=== PATIENT | male | born 1965 | race Caucasian/White ===

== ENCOUNTER 2017-03-11 09:58 | Emergency (ER) | payer MEDICAID ==
[~2017-03-11] VITALS: Ht 160 cm; Wt 85.9 kg
[~2017-03-11 09:58] MED LIST: ASPI-556 PO; CAPT25TA3 PO
[2017-03-11] MEDS ORDERED: IRON15TA3 PO (10:01)
[2017-03-11] MEDS ORDERED: OMEG100019 PO (10:01)
[2017-03-11] MEDS ORDERED: [UNRECOGNIZED DRUG - CODE] PO (10:47)
[2017-03-11] MEDS ORDERED: ASPI-1093 PO (10:47)
[2017-03-11] MEDS ORDERED: OMEG100033 PO (10:47)
[2017-03-11 11:01] LABS: BASOPHILS % (AUTO) 0.5 % (0.0-2.0); EOSINOPHILS % (AUTO) 2.2 % (1.0-6.0); HEMATOCRIT 46.5 % (41-53); LYMPHOCYTES # (AUTO) 2.6 K/uL (1.0-4.8); LYMPHOCYTES % (AUTO) 33.5 % (22.0-44.0); MEAN CORPUSCULAR HEMOGLOBIN 30.9 pg (26.0-34.0); MEAN CORPUSCULAR HGB CONC 34.4 G/dL (31.0-37.0); MEAN CORPUSCULAR VOLUME 90 fL (80-100); MONOCYTES # (AUTO) 0.4 K/uL (0.1-1.0); MONOCYTES % (AUTO) 5.3 % (2.0-9.0); NEUTROPHILS # (AUTO) 4.5 K/uL (1.8-7.7); NEUTROPHILS % (AUTO) 58.5 % (40.0-70.0); PLATELET COUNT (AUTO) 271 K/uL (150-450); RED BLOOD CELL COUNT(AUTO) 5.18 MIL/uL (4.50-5.90); RED CELL DISTRIBUTION WIDTH 12.4 % (11.5-14.5); WHITE BLOOD COUNT (AUTO) 7.7 K/uL (4.5-11.0)
[2017-03-11 11:12] LABS: ANION GAP 8 mmol/L (8-16); CALCIUM, TOTAL 8.8 mg/dL (8.8-10.5); CARBON DIOXIDE 25 mmol/L (22-29); CHLORIDE 105 mmol/L (98-107); CREATININE 0.89 mg/dL (0.60-1.30); GLOMERULAR FILTR. RATE CALC > 60 mL/min (>60); POTASSIUM 4.3 mmol/L (3.5-5.1); SODIUM SERUM 138 mmol/L (136-145); UREA NITROGEN, BLOOD 11 mg/dL (7-18)
[2017-03-11 11:24] LABS: B-TYPE NATRIURETIC PEPTIDE 52 pg/mL (0-100)
[2017-03-11] MEDS ORDERED: CAPTOPRIL 25 MG TABLET PO ONE (11:30)
[2017-03-11 11:49] LABS: ALANINE AMINOTRANSFERASE 53 U/L (12-78); ALBUMIN 3.9 g/dL (3.4-5.0); ASPARTATE AMINOTRANSFERASE 23 U/L (15-37); BILIRUBIN,TOTAL 0.3 mg/dL (0.1-1.0); CREATINE KINASE MB 1.1 ng/mL (0-5); CREATINE KINASE, TOTAL 112 U/L (39-308); TOTAL PROTEIN, SERUM 7.9 g/dL (6.4-8.2)
[2017-03-11 12:36] VITALS: BP 143/83
== END 2017-03-11 12:50 | disposition home or self-care (01) ==
LOC: EMS 10:02
DX: R07.89 Other chest pain (principal); I10 Essential (primary) hypertension; R20.0 Anesthesia of skin; I25.10 Atherosclerotic heart disease of native coronary artery without angina pectoris; Z95.1 Presence of aortocoronary bypass graft; Z79.82 Long term (current) use of aspirin
CPT/HCPCS: 93005; 99285

== ENCOUNTER 2021-09-25 17:41 | Emergency (ER) | payer MEDICAID ==
[~2021-09-25] VITALS: Ht 160 cm; Wt 85.9 kg
[~2021-09-25 17:41] MED LIST changes: +ASPI-1444 PO; -ASPI-556 PO; -CAPT25TA3 PO; +OMEG100033 PO; +[UNRECOGNIZED DRUG - CODE] PO
[2021-09-25 22:07] LABS: BASOPHILS % (AUTO) 0.6 % (0.0-2.0); EOSINOPHILS % (AUTO) 0.1 % (1.0-6.0); HEMATOCRIT 43.8 % (41-53); LYMPHOCYTES % (AUTO) 24.9 % (22.0-44.0); MEAN CORPUSCULAR HEMOGLOBIN 30.7 pg (26.0-34.0); MEAN CORPUSCULAR HGB CONC 34.2 G/dL (31.0-37.0); MEAN CORPUSCULAR VOLUME 90 fL (80-100); MONOCYTES # (AUTO) 0.6 K/uL (0.1-1.0); MONOCYTES % (AUTO) 7.3 % (2.0-9.0); NEUTROPHILS # (AUTO) 5.5 K/uL (1.8-7.7); NEUTROPHILS % (AUTO) 67.1 % (40.0-70.0); PLATELET COUNT (AUTO) 200 K/uL (150-450); RED CELL DISTRIBUTION WIDTH 12.5 % (11.5-14.5)
[2021-09-25 22:33] LABS: ANION GAP 7 mmol/L (8-16); CALCIUM, TOTAL 8.8 mg/dL (8.8-10.5); CARBON DIOXIDE 27 mmol/L (22-29); CHLORIDE 100 mmol/L (98-107); CREATININE 1.11 mg/dL (0.60-1.30); GLOMERULAR FILTR. RATE CALC > 60 mL/min (>60); GLUCOSE,RANDOM 128 mg/dL (70-110); POTASSIUM 3.8 mmol/L (3.5-5.1); SODIUM SERUM 134 mmol/L (136-145); UREA NITROGEN, BLOOD 19 mg/dL (7-18)
[2021-09-25 22:39] LABS: ALANINE AMINOTRANSFERASE 38 U/L (12-78); ALBUMIN 3.2 g/dL (3.4-5.0); ALKALINE PHOSPHATASE 64 U/L (46-116); ASPARTATE AMINOTRANSFERASE 28 U/L (15-37); BILIRUBIN,TOTAL 0.6 mg/dL (0.1-1.0); LIPASE 235 U/L (73-393); TOTAL PROTEIN, SERUM 7.9 g/dL (6.4-8.2)
[2021-09-26] MEDS ORDERED: PB/HYOSCY/ATR/SCOP/LIDO/MAALOX 55 ML BOTTLE PO ONE (01:00)
[2021-09-26] MEDS ORDERED: FAMOTIDINE 20 MG TABLET PO ONE (01:00)
[2021-09-26 01:19] VITALS: BP 132/74
== END 2021-09-26 03:02 | disposition home or self-care (01) ==
LOC: EMS 17:43
DX: R10.13 Epigastric pain (principal); I10 Essential (primary) hypertension; E78.00 Pure hypercholesterolemia, unspecified; F32.9 Major depressive disorder, single episode, unspecified; Z79.899 Other long term (current) drug therapy
CPT/HCPCS: 36415; 80053; 83690; 84484; 85025; 93005; 99284; G0480

== ENCOUNTER 2021-10-31 12:00 | Inpatient (IN) | payer MEDICAID ==
[2021-10-31] VITALS (12 sets, daily range): BP systolic 103–203; BP diastolic 73–104
[~2021-10-31] VITALS: Ht 175.3 cm; Wt 86.4 kg
[2021-10-31 12:23] LABS: BASOPHILS % (AUTO) 0.9 % (0.0-2.0); EOSINOPHILS % (AUTO) 1.9 % (1.0-6.0); HEMOGLOBIN 14.5 g/dL (13.5-17.5); LYMPHOCYTES # (AUTO) 2.7 K/uL (1.0-4.8); LYMPHOCYTES % (AUTO) 31.2 % (22.0-44.0); MEAN CORPUSCULAR HEMOGLOBIN 30.1 pg (26.0-34.0); MEAN CORPUSCULAR HGB CONC 33.7 G/dL (31.0-37.0); MEAN CORPUSCULAR VOLUME 89 fL (80-100); MONOCYTES # (AUTO) 0.7 K/uL (0.1-1.0); MONOCYTES % (AUTO) 7.6 % (2.0-9.0); NEUTROPHILS # (AUTO) 5.1 K/uL (1.8-7.7); NEUTROPHILS % (AUTO) 58.4 % (40.0-70.0); PLATELET COUNT (AUTO) 229 K/uL (150-450); RED BLOOD CELL COUNT(AUTO) 4.82 MIL/uL (4.50-5.90)
[2021-10-31 12:41] LABS: ANION GAP 6 mmol/L (8-16); CARBON DIOXIDE 24 mmol/L (22-29); CHLORIDE 106 mmol/L (98-107); CREATININE 0.85 mg/dL (0.60-1.30); GLOMERULAR FILTR. RATE CALC > 60 mL/min (>60); GLUCOSE,RANDOM 115 mg/dL (70-110); POTASSIUM 3.9 mmol/L (3.5-5.1); SODIUM SERUM 136 mmol/L (136-145); UREA NITROGEN, BLOOD 10 mg/dL (7-18)
[2021-10-31 12:45] LABS: ALANINE AMINOTRANSFERASE 59 U/L (12-78); ALBUMIN 3.8 g/dL (3.4-5.0); ALKALINE PHOSPHATASE 85 U/L (46-116); ASPARTATE AMINOTRANSFERASE 35 U/L (15-37); BILIRUBIN,TOTAL 0.7 mg/dL (0.1-1.0); TOTAL PROTEIN, SERUM 8.1 g/dL (6.4-8.2)
[2021-10-31] MEDS ORDERED: HEPARIN SODIUM 1000 UNITS/NS 1,000 ML ONE (13:10)
[2021-10-31] MEDS ORDERED: LIDOCAINE/PF 1% 30 ML VIAL ONE (13:10)
[2021-10-31] MEDS ORDERED: IOHEXOL 300 MG/ML 150 ML VIAL ONE (13:10)
[2021-10-31] MEDS ORDERED: SODIUM BICARBONATE 50 MEQ/50 ML VIAL ONE (13:10)
[2021-10-31] MEDS ORDERED: ASPIRIN 325 MG TABLET ONE (14:42)
[2021-10-31] MEDS ORDERED: TICAGRELOR 90 MG TABLET ONE (14:42)
[2021-10-31] MEDS ORDERED: ONDANSETRON HCL 4 MG/2 ML VIAL IVP PRN (14:45)
[2021-10-31] MEDS ORDERED: MORPHINE SULFATE 2 MG/ML SYRINGE IVP PRN (14:45)
[2021-10-31] MEDS ORDERED: ATORVASTATIN CALCIUM 40 MG TABLET PO SCH (14:45)
[2021-10-31] MEDS ORDERED: MIDAZOLAM HCL 2 MG/2 ML VIAL ONE (14:45)
[2021-10-31] MEDS ORDERED: FentaNYL CITRATE PF 100 MCG/2 ML VIAL ONE (14:45)
[2021-10-31] MEDS ORDERED: ASPIRIN 81 MG CHEWABLE TABLET PO ONE (15:00)
[2021-10-31] MEDS ORDERED: FentaNYL CITRATE PF 100 MCG/2 ML VIAL IVP ONE (15:00)
[2021-10-31] MEDS ORDERED: IOHEXOL 300 MG/ML 150 ML VIAL IARTER ONE (15:00)
[2021-10-31] MEDS ORDERED: TICAGRELOR 90 MG TABLET PO ONE (15:00)
[2021-10-31] MEDS ORDERED: MIDAZOLAM HCL 2 MG/2 ML VIAL IVP ONE (15:00)
[2021-10-31] MEDS ORDERED: HEPARIN SODIUM 1000 UNITS/NS 1,000 ML IARTER ONE (15:00)
[2021-10-31] MEDS ORDERED: LIDOCAINE 1% 30 ML/SOD BICARB 8.4% 4 ML SQ ONE (15:00)
[2021-10-31] MEDS ORDERED: IOHEXOL 300 MG/ML 100 ML VIAL ONE (15:03)
[2021-10-31] MEDS ORDERED: IOHEXOL 300 MG/ML 50 ML VIAL ONE (15:03)
[2021-10-31] MEDS ORDERED: NITROGLYCERIN 50 MG/D5% WATER 250 ML ONE (15:26)
[2021-10-31] MEDS ORDERED: VERAPAMIL HCL 2.5 MG/ML 2 ML VIAL ONE (15:27)
[2021-10-31] MEDS ORDERED: NITROGLYCERIN/D5W 50 MG/250 ML IV BOTTLE ICOR ONE (15:30)
[2021-10-31] MEDS ORDERED: VERAPAMIL HCL 2.5 MG/ML 2 ML VIAL ICOR ONE (15:30)
[2021-10-31] MEDS ORDERED: IOHEXOL 300 MG/ML 100 ML VIAL IARTER ONE (15:45)
[2021-10-31] MEDS ORDERED: HEPARIN SODIUM,PORCINE 5,000 UNITS/ML VIAL IVP ONE (15:45)
[2021-10-31] MEDS ORDERED: IOHEXOL 300 MG/ML 50 ML VIAL IARTER ONE (15:45)
[2021-10-31] MEDS ORDERED: ACETAMINOPHEN 325 MG TABLET PO PRN (16:00)
[2021-10-31] MEDS ORDERED: HydrALAZINE HCL 20 MG/ML VIAL IVP PRN (16:00)
[2021-10-31] MEDS ORDERED: SODIUM CHLORIDE 0.9% 500 ML IV ONE (16:45)
[2021-10-31] MEDS: LISINOPRIL 10 MG TABLET PO SCH (17:04)
[2021-10-31] MEDS: CARVEDILOL 12.5 MG TABLET PO SCH ×2 (17:04→20:17)
[2021-10-31] MEDS: AmLODIPine BESYLATE 5 MG TABLET PO SCH (17:04)
[2021-10-31] MEDS: ATORVASTATIN CALCIUM 40 MG TABLET PO SCH (20:16)
[2021-10-31] MEDS: TICAGRELOR 90 MG TABLET PO SCH (20:16)
[2021-10-31] MEDS: FAMOTIDINE 20 MG TABLET PO SCH (20:16)
[2021-10-31] MEDS: DOCUSATE SODIUM 100 MG CAPSULE PO SCH (20:17)
[2021-10-31] MEDS: ACETAMINOPHEN 325 MG TABLET PO PRN (21:07)
[2021-11-01] VITALS (8 sets, daily range): BP systolic 108–157; BP diastolic 63–84
[2021-11-01] MEDS: FAMOTIDINE 20 MG TABLET PO SCH ×2 (07:46→20:34)
[2021-11-01] MEDS: AmLODIPine BESYLATE 5 MG TABLET PO SCH (07:47)
[2021-11-01] MEDS: LISINOPRIL 10 MG TABLET PO SCH (07:49)
[2021-11-01] MEDS: CARVEDILOL 12.5 MG TABLET PO SCH ×2 (07:49→20:34)
[2021-11-01] MEDS: TICAGRELOR 90 MG TABLET PO SCH ×2 (07:49→20:34)
[2021-11-01] MEDS: DOCUSATE SODIUM 100 MG CAPSULE PO SCH ×2 (07:50→20:35)
[2021-11-01] MEDS: METOPROLOL SUCCINATE 50 MG ER TABLET PO SCH (08:05)
[2021-11-01] MEDS: ASPIRIN 81 MG CHEWABLE TABLET PO SCH (08:05)
[2021-11-01 08:08] LABS: BAND NEUTROPHILS % (MANUAL) 0 % (0-5)
[2021-11-01 08:10] LABS: HEMATOCRIT 44.9 % (41-53); HEMOGLOBIN 14.8 g/dL (13.5-17.5); MEAN CORPUSCULAR HEMOGLOBIN 30.1 pg (26.0-34.0); MEAN CORPUSCULAR VOLUME 91 fL (80-100); PLATELET COUNT (AUTO) 236 K/uL (150-450); RED BLOOD CELL COUNT(AUTO) 4.94 MIL/uL (4.50-5.90); RED CELL DISTRIBUTION WIDTH 13.3 % (11.5-14.5)
[2021-11-01 08:28] LABS: ALANINE AMINOTRANSFERASE 57 U/L (12-78); ALBUMIN 3.6 g/dL (3.4-5.0); ALKALINE PHOSPHATASE 80 U/L (46-116); ANION GAP 9 mmol/L (8-16); ASPARTATE AMINOTRANSFERASE 31 U/L (15-37); BILIRUBIN,TOTAL 0.9 mg/dL (0.1-1.0); CALCIUM, TOTAL 9.1 mg/dL (8.8-10.5); CARBON DIOXIDE 26 mmol/L (22-29); CHLORIDE 104 mmol/L (98-107); CHOL/HDL RATIO 4.8 (4.2-7.3); CHOLESTEROL 189 mg/dL (131-200); CREATININE 0.89 mg/dL (0.60-1.30); GLOMERULAR FILTR. RATE CALC > 60 mL/min (>60); GLUCOSE,RANDOM 136 mg/dL (70-110); HDL CHOLESTEROL 39 mg/dL (40-60); LDL CHOL (CALC.) 123 mg/dL (0-130); POTASSIUM 4.6 mmol/L (3.5-5.1); SODIUM SERUM 139 mmol/L (136-145); TOTAL PROTEIN, SERUM 7.9 g/dL (6.4-8.2); TRIGLYCERIDES 134 mg/dL (15-150); UREA NITROGEN, BLOOD 10 mg/dL (7-18)
[2021-11-01 09:24] LABS: EOSINOPHILS % (MANUAL) 2 % (1-6); LYMPHOCYTES % (MANUAL) 27 % (22-44); MONOCYTES % (MANUAL) 5 % (2-9); SEGMENTED NEUTROPHILS % 66 % (40-70)
[2021-11-01] MEDS: ATORVASTATIN CALCIUM 40 MG TABLET PO SCH (20:34)
[2021-11-01] MEDS: ACETAMINOPHEN 325 MG TABLET PO PRN (20:36)
[2021-11-02] VITALS: BP 128/68
[2021-11-02 04:00] VITALS: BP 119/87
[2021-11-02 06:17] LABS: BASOPHILS % (AUTO) 0.4 % (0.0-2.0); EOSINOPHILS % (AUTO) 3.1 % (1.0-6.0); HEMATOCRIT 43.2 % (41-53); HEMOGLOBIN 14.3 g/dL (13.5-17.5); LYMPHOCYTES # (AUTO) 2.8 K/uL (1.0-4.8); LYMPHOCYTES % (AUTO) 28.4 % (22.0-44.0); MEAN CORPUSCULAR HEMOGLOBIN 30.2 pg (26.0-34.0); MEAN CORPUSCULAR HGB CONC 33.2 G/dL (31.0-37.0); MEAN CORPUSCULAR VOLUME 91 fL (80-100); MONOCYTES # (AUTO) 0.8 K/uL (0.1-1.0); MONOCYTES % (AUTO) 8.3 % (2.0-9.0); NEUTROPHILS # (AUTO) 5.9 K/uL (1.8-7.7); NEUTROPHILS % (AUTO) 59.8 % (40.0-70.0); PLATELET COUNT (AUTO) 215 K/uL (150-450); RED BLOOD CELL COUNT(AUTO) 4.75 MIL/uL (4.50-5.90); RED CELL DISTRIBUTION WIDTH 13.5 % (11.5-14.5)
[2021-11-02 06:46] LABS: ALANINE AMINOTRANSFERASE 47 U/L (12-78); ALBUMIN 3.4 g/dL (3.4-5.0); ALKALINE PHOSPHATASE 77 U/L (46-116); ANION GAP 8 mmol/L (8-16); ASPARTATE AMINOTRANSFERASE 22 U/L (15-37); BILIRUBIN,TOTAL 0.5 mg/dL (0.1-1.0); CALCIUM, TOTAL 8.9 mg/dL (8.8-10.5); CARBON DIOXIDE 25 mmol/L (22-29); CHLORIDE 106 mmol/L (98-107); CREATININE 0.95 mg/dL (0.60-1.30); GLOMERULAR FILTR. RATE CALC > 60 mL/min (>60); GLUCOSE,RANDOM 135 mg/dL (70-110); POTASSIUM 3.9 mmol/L (3.5-5.1); SODIUM SERUM 139 mmol/L (136-145); TOTAL PROTEIN, SERUM 7.5 g/dL (6.4-8.2); UREA NITROGEN, BLOOD 18 mg/dL (7-18)
[2021-11-02] MEDS: DOCUSATE SODIUM 100 MG CAPSULE PO SCH (08:19)
[2021-11-02] MEDS: ASPIRIN 81 MG CHEWABLE TABLET PO SCH (08:19)
[2021-11-02] MEDS: FAMOTIDINE 20 MG TABLET PO SCH (08:20)
[2021-11-02] MEDS: CARVEDILOL 12.5 MG TABLET PO SCH (08:20)
[2021-11-02] MEDS: AmLODIPine BESYLATE 5 MG TABLET PO SCH (08:20)
[2021-11-02] MEDS: LISINOPRIL 10 MG TABLET PO SCH (08:21)
[2021-11-02] MEDS: METOPROLOL SUCCINATE 50 MG ER TABLET PO SCH (08:21)
[2021-11-02] MEDS: TICAGRELOR 90 MG TABLET PO SCH (08:59)
[2021-11-02 09:49] VITALS: BP 139/87
[2021-11-02] MEDS ORDERED: TICA90TA PO (12:20)
[2021-11-02] MEDS ORDERED: ATOR40TA28 PO (12:21)
[2021-11-02] MEDS ORDERED: LISI-893 PO (12:22)
[2021-11-02] MEDS ORDERED: CARV12 PO (12:22)
== END 2021-11-02 14:00 | disposition home or self-care (01) | DRG 174 ==
LOC: EMS 12:20 → ICUN 15:03 → 5S 15:49
PROVIDERS: ADMIT Internal Medicine; ATTEND Internal Medicine
PROC: 027034Z Dilation of Coronary Artery, One Artery with Drug-eluting Intraluminal Device, Percutaneous Approach (ICD-10-PCS; principal; 2021-10-31)
PROC: 4A023N7 Measurement of Cardiac Sampling and Pressure, Left Heart, Percutaneous Approach (ICD-10-PCS; 2021-10-31)
PROC: B2111ZZ Fluoroscopy of Multiple Coronary Arteries using Low Osmolar Contrast (ICD-10-PCS; 2021-10-31)
PROC: B21F1ZZ Fluoroscopy of Other Bypass Graft using Low Osmolar Contrast (ICD-10-PCS; 2021-10-31)
PROC: B2181ZZ Fluoroscopy of Left Internal Mammary Bypass Graft using Low Osmolar Contrast (ICD-10-PCS; 2021-10-31)
DX: I21.4 Non-ST elevation (NSTEMI) myocardial infarction (principal); E78.00 Pure hypercholesterolemia, unspecified; E78.5 Hyperlipidemia, unspecified; I10 Essential (primary) hypertension; I25.10 Atherosclerotic heart disease of native coronary artery without angina pectoris; Z82.49 Family history of ischemic heart disease and other diseases of the circulatory system; Z95.1 Presence of aortocoronary bypass graft; Z95.5 Presence of coronary angioplasty implant and graft
CPT/HCPCS: 71045; 80053; 80061; 83735; 84484; 85007; 85025; 85027; 92920; 92928; 93005; 93306; 93459; 99291; J1644; J2250; J3010; J3490; J7040; Q9967; 36415-L1; 36415-TC; Z7610

== ENCOUNTER 2022-08-20 14:07 | Inpatient (IN) | payer MEDICAID, OTHER ==
[~2022-08-20] VITALS: Ht 165.1 cm; Wt 87.6 kg
[~2022-08-20 14:07] MED LIST changes: +ATOR40TA28 PO; +CARV12 PO; +LISI-893 PO; -OMEG100033 PO; +TICA90TA PO; -[UNRECOGNIZED DRUG - CODE] PO
[2022-08-20 14:51] LABS: BASOPHILS % (AUTO) 0.7 % (0.0-2.0); HEMOGLOBIN 15.3 g/dL (13.5-17.5); LYMPHOCYTES # (AUTO) 2.2 K/uL (1.0-4.8); LYMPHOCYTES % (AUTO) 24.6 % (22.0-44.0); MEAN CORPUSCULAR HEMOGLOBIN 30.5 pg (26.0-34.0); MEAN CORPUSCULAR HGB CONC 33.3 G/dL (31.0-37.0); MEAN CORPUSCULAR VOLUME 92 fL (80-100); MONOCYTES # (AUTO) 0.6 K/uL (0.1-1.0); MONOCYTES % (AUTO) 6.7 % (2.0-9.0); NEUTROPHILS # (AUTO) 5.8 K/uL (1.8-7.7); PLATELET COUNT (AUTO) 211 K/uL (150-450); RED BLOOD CELL COUNT(AUTO) 5.02 MIL/uL (4.50-5.90); RED CELL DISTRIBUTION WIDTH 12.7 % (11.5-14.5)
[2022-08-20] MEDS ORDERED: ASPIRIN 81 MG CHEWABLE TABLET PO ONE (15:00)
[2022-08-20 15:04] LABS: ANION GAP 7 mmol/L (8-16); CALCIUM, TOTAL 9.1 mg/dL (8.8-10.5); CARBON DIOXIDE 25 mmol/L (22-29); CHLORIDE 104 mmol/L (98-107); CREATININE 0.98 mg/dL (0.60-1.30); GLUCOSE,RANDOM 166 mg/dL (70-110); SODIUM SERUM 136 mmol/L (136-145); UREA NITROGEN, BLOOD 12 mg/dL (7-18)
[2022-08-20 15:07] LABS: GLOMERULAR FILTR. RATE CALC > 60 mL/min (>60)
[2022-08-20 15:09] LABS: B-TYPE NATRIURETIC PEPTIDE 35 pg/mL (0-100)
[2022-08-20 15:23] LABS: COVID AG,FIA SOURCE NASAL SWAB
[2022-08-20 15:25] LABS: ALANINE AMINOTRANSFERASE 115 U/L (12-78); ALBUMIN 3.8 g/dL (3.4-5.0); ALKALINE PHOSPHATASE 93 U/L (46-116); ASPARTATE AMINOTRANSFERASE 50 U/L (15-37); BILIRUBIN,TOTAL 0.5 mg/dL (0.1-1.0); CREATINE KINASE, TOTAL ONLY 86 U/L (39-308); TOTAL PROTEIN, SERUM 8.1 g/dL (6.4-8.2)
[2022-08-20 15:39] LABS: PROTHROMBIN TIME 10.9 SEC (9.4-11.6)
[2022-08-20] MEDS ORDERED: NITROGLYCERIN 2% (1 GM=INCH) PACKET TP ONE (16:00)
[2022-08-20] MEDS ORDERED: MORPHINE SULFATE 2 MG/ML SYRINGE IVP PRN (16:30)
[2022-08-20] MEDS ORDERED: HYDROCODONE/ACETAMINOPHEN 5-325 MG TABLET PO PRN (16:30)
[2022-08-20] MEDS ORDERED: BISACODYL 10 MG RECTAL RECTAL SUPPOSITORY PR PRN (16:30)
[2022-08-20] MEDS ORDERED: ZOLPIDEM TARTRATE 5 MG TABLET PO PRN (16:30)
[2022-08-20] MEDS ORDERED: ONDANSETRON HCL 4 MG/2 ML VIAL IVP PRN (16:30)
[2022-08-20] MEDS ORDERED: MAGNESIUM HYDROXIDE SUSPENSION 30 ML UDCUP PO PRN (16:30)
[2022-08-20] MEDS ORDERED: ACETAMINOPHEN 325 MG TABLET PO PRN (16:30)
[2022-08-20 21:24] VITALS: BP 145/105
[2022-08-20] MEDS: TICAGRELOR 90 MG TABLET PO SCH (21:38)
[2022-08-20] MEDS: DOCUSATE SODIUM 100 MG CAPSULE PO SCH (21:38)
[2022-08-20] MEDS: CARVEDILOL 12.5 MG TABLET PO SCH (21:38)
[2022-08-21 04:28] VITALS: BP 149/87
[2022-08-21 06:33] LABS: BASOPHILS % (AUTO) 0.9 % (0.0-2.0); EOSINOPHILS % (AUTO) 3.7 % (1.0-6.0); LYMPHOCYTES # (AUTO) 2.5 K/uL (1.0-4.8); LYMPHOCYTES % (AUTO) 30.3 % (22.0-44.0); MEAN CORPUSCULAR HEMOGLOBIN 30.8 pg (26.0-34.0); MEAN CORPUSCULAR HGB CONC 33.3 G/dL (31.0-37.0); MEAN CORPUSCULAR VOLUME 92 fL (80-100); MONOCYTES # (AUTO) 0.7 K/uL (0.1-1.0); MONOCYTES % (AUTO) 8.4 % (2.0-9.0); NEUTROPHILS # (AUTO) 4.6 K/uL (1.8-7.7); NEUTROPHILS % (AUTO) 56.7 % (40.0-70.0); PLATELET COUNT (AUTO) 205 K/uL (150-450); RED BLOOD CELL COUNT(AUTO) 4.88 MIL/uL (4.50-5.90)
[2022-08-21 06:38] LABS: ANION GAP 7 mmol/L (8-16); CALCIUM, TOTAL 9.1 mg/dL (8.8-10.5); CARBON DIOXIDE 26 mmol/L (22-29); CHLORIDE 104 mmol/L (98-107); CREATININE 0.97 mg/dL (0.60-1.30); GLUCOSE,RANDOM 136 mg/dL (70-110); POTASSIUM 3.9 mmol/L (3.5-5.1); SODIUM SERUM 137 mmol/L (136-145); UREA NITROGEN, BLOOD 13 mg/dL (7-18)
[2022-08-21 06:41] LABS: GLOMERULAR FILTR. RATE CALC > 60 mL/min (>60)
[2022-08-21 07:30] VITALS: BP 158/85
[2022-08-21] MEDS ORDERED: LISINOPRIL 10 MG TABLET PO SCH (09:00)
[2022-08-21] MEDS ORDERED: PANTOPRAZOLE SODIUM 40 MG DR TABLET PO SCH (09:00)
[2022-08-21] MEDS ORDERED: ASPIRIN 81 MG DR TABLET PO SCH (09:00)
[2022-08-21] MEDS: DOCUSATE SODIUM 100 MG CAPSULE PO SCH (09:00)
[2022-08-21] MEDS: CARVEDILOL 12.5 MG TABLET PO SCH (09:00)
[2022-08-21] MEDS ORDERED: ATORVASTATIN CALCIUM 40 MG TABLET PO SCH (09:00)
[2022-08-21] MEDS: TICAGRELOR 90 MG TABLET PO SCH (09:00)
[2022-08-21] MEDS ORDERED: TICA90TA PO (12:18)
[2022-08-21] MEDS ORDERED: ASPI-1444 PO (12:18)
[2022-08-21] MEDS ORDERED: CARV12 PO (12:18)
[2022-08-21] MEDS ORDERED: RANO500T3 PO (12:18)
[2022-08-21] MEDS ORDERED: LISI-893 PO (12:18)
[2022-08-21] MEDS ORDERED: ATOR40TA28 PO (12:18)
== END 2022-08-21 13:30 | disposition home or self-care (01) | DRG 198 ==
LOC: EMS 14:12 → 5S 19:27
PROVIDERS: ADMIT Internal Medicine; ATTEND Internal Medicine
DX: I25.110 Atherosclerotic heart disease of native coronary artery with unstable angina pectoris (principal); E11.9 Type 2 diabetes mellitus without complications; E78.5 Hyperlipidemia, unspecified; F10.20 Alcohol dependence, uncomplicated; E78.00 Pure hypercholesterolemia, unspecified; I10 Essential (primary) hypertension; Z20.822 Contact with and (suspected) exposure to COVID-19; Z95.1 Presence of aortocoronary bypass graft; Z79.899 Other long term (current) drug therapy; Z79.02 Long term (current) use of antithrombotics/antiplatelets
CPT/HCPCS: 71045; 80048; 80053; 82550; 83880; 84484; 85025; 85610; 85730; 93005; 93306; 99285; 36415-L1; 36415-TC